=== PATIENT | female | born 1960 | race Caucasian/White ===

== ENCOUNTER 2016-06-03 09:59 | Outpatient (CLI) | payer OTHER ==
--- NOTE | 2016-06-03 12:22 | DIAGNOSTIC IMAGING REPORT ---
PROCEDURE: CT SOFT TISSUE NECK WITH CONT INDICATION: ADENOPATHY, CERVICAL TECHNIQUE: 100 ml of Isovue 300 injected intravenously and axial images were obtained from the skull base through the upper mediastinum with sagittal and coronal reformations. In addition, angled axial oblique images were obtained (avoiding dental hardware). COMPARISON: CT soft tissue neck 10/23/2015. FINDINGS: Multiple stable small nonspecific cervical lymph nodes (largest left jugular 6 mm short axis). Normal nasopharynx, oropharynx and airways. The parotid, submandibular and thyroid glands are unremarkable. Normal visualized lung apices. Mastoids and visualized sinuses are clear. Mild degenerative changes of the spine. IMPRESSION: 1. Negative study. Stable small nonspecific cervical lymph nodes All CT scans at this facility use dose modulation, iterative reconstruction, and/or weight-based dosing when appropriate to reduce radiation dose to as low as reasonably achievable.
[2016-07-30] MEDS ORDERED: OMEPRAZOLE20 M1 PO (13:04)
[2016-07-30] MEDS ORDERED: PREMARIN CREAM TOP (13:06)
[2016-07-30] MEDS ORDERED: OMEGA-3 KRILL O1 CA1 PO (13:07)
[2016-07-30] MEDS ORDERED: VITAMIN C500 M1 PO (13:07)
[2016-07-30] MEDS ORDERED: MULTIPLE VITAMIN PO (13:07)
[2016-07-30] MEDS ORDERED: VITAMIN D-31000 UNIT PO (13:07)
== END 2016-06-03 23:00 ==
LOC: CT SRH 09:59
DX: R59.0 Localized enlarged lymph nodes (principal)

== ENCOUNTER 2016-07-17 09:57 | Outpatient (CLI) | payer OTHER ==
--- NOTE | 2016-07-17 11:50 | DIAGNOSTIC IMAGING REPORT ---
PROCEDURE: XR UPPER GI WITH AIR INDICATION: Chronic reflux and heartburn (refractory to medical therapy). TECHNIQUE: Double contrast study. Fluoroscopy time, 2.2 minutes; 1415.96 mGy. 50 fluoroscopic images (including cinefluoroscopy). COMPARISON: Comparison is made to CT soft tissue neck on 06/03/2016. FINDINGS: Pharyngoesophagus demonstrates moderate transition prominence of the cricopharyngeus muscle, but no evidence of obstruction. Small sliding hiatal hernia with moderate to severe spontaneous gastroesophageal reflux. Mild tertiary contractions of the distal esophagus. Esophagus is otherwise normal. No constricting or polypoid lesions. Stomach and duodenum are normal. IMPRESSION: 1. Pharyngoesophagus demonstrates transient prominence of the cricopharyngeus muscle, but no evidence of obstruction. 2. Small sliding hiatal hernia. 3. Moderate to severe spontaneous gastroesophageal reflux. 4. Normal stomach and duodenum. 5. Findings discussed with the patient.
[2016-07-30] MEDS ORDERED: OMEPRAZOLE20 M1 PO (13:04)
[2016-07-30] MEDS ORDERED: PREMARIN CREAM TOP (13:06)
[2016-07-30] MEDS ORDERED: VITAMIN C500 M1 PO (13:07)
[2016-07-30] MEDS ORDERED: MULTIPLE VITAMIN PO (13:07)
[2016-07-30] MEDS ORDERED: OMEGA-3 KRILL O1 CA1 PO (13:07)
[2016-07-30] MEDS ORDERED: VITAMIN D-31000 UNIT PO (13:07)
== END 2016-07-17 23:00 ==
LOC: XR SRH 09:57
DX: K21.9 Gastro-esophageal reflux disease without esophagitis (principal); K44.9 Diaphragmatic hernia without obstruction or gangrene

== ENCOUNTER 2016-08-01 09:31 | Day surgery (SDC) | payer OTHER ==
[~2016-08-01] VITALS: Ht 180.3 cm; Wt 83.0 kg
[~2016-08-01 09:31] MED LIST: MULTIPLE VITAMIN PO; OMEGA-3 KRILL O1 CA1 PO; OMEPRAZOLE20 M1 PO; PREMARIN CREAM TOP; VITAMIN C500 M1 PO; VITAMIN D-31000 UNIT PO
--- NOTE | 2016-08-01 10:00 | NUR ---
PRE OP INSTRUCTIONS GIVEN AND SAFETY ISSUES DISCUSSED PT CONFIRMED PROCEDURES PT SIGNED CONSENT PT HAS QUESTIONSABLE RESTLESS REFUSED METOCLOPRAMIDE PT RESTING
--- NOTE | 2016-08-01 10:12 | NUR ---
FIRST ATTEMPT IV UNSUCCESSFUL RIGHT WRIST
--- NOTE | 2016-08-01 11:48 | NUR ---
COLONOSCOPY END 1147 EGD START 1151
--- NOTE | 2016-08-01 12:14 | NUR ---
PT SLEEPING UPON ADMIT TO THE PACU. WAKES TO VOICE, DENIES PAIN OR DISCOMFORT.
--- NOTE | 2016-08-01 12:18 | NUR ---
PATIENT AWAKE. SITTING UP ON THE GURNEY, TAKING ICE CHIPS PRN. WELL TOLERATED.
--- NOTE | 2016-08-01 12:32 | Provider's Discharge Care Plan ---
Problem, Goal, Plan Problem List 1. Hiatal hernia
--- NOTE | 2016-08-01 12:32 | Provider's Discharge Care Plan ---
Problem, Goal, Plan Problem List 1. Hiatal hernia
--- NOTE | 2016-08-01 12:57 | NUR ---
PATIENT BACK FROM OR. VITALS STABLE. PASSING GAS. PATIENT DENIES ANY ABDOMINAL DISCOMFORT OR NAUSEA AT THIS TIME. WILL CONTINUE TO MONITOR.
--- NOTE | 2016-08-01 13:04 | OPERATIVE REPORT ---
DATE OF SURGERY: 08/01/2016 SURGEON: King Villarreal MD PREOPERATIVE DIAGNOSES: 1. Colon cancer risk 2. Gastroesophageal reflux disease POSTOPERATIVE DIAGNOSES: 1. Colon cancer risk 2. Gastroesophageal reflux disease PROCEDURE PERFORMED: 1. Colonoscopy 2. Esophagogastroduodenoscopy with biopsies ANESTHESIA: Total IV general. INDICATIONS: The patient is a 56-year-old woman with worsening reflux, now incompletely controlled by proton pump inhibitors. She has a hiatal hernia and prominent reflux. She also is due for screening colonoscopy. SURGICAL TECHNIQUE: The patient was taken to the endoscopy suite, where total IV general was administered and the patient was placed in the left lateral decubitus position. A well-lubricated colonoscope was advanced the length colon under direct vision. There were numerous diverticula seen. The cecum was reached. On withdrawal, there were no additional findings. There were some prominent hemorrhoids. The upper GI endoscope was introduced. The stomach was entered and there was bile laking in the stomach. The duodenum was entered and this was normal. On withdrawal, a retroflexed view demonstrated a large sliding hiatal hernia. A single biopsy was taken from the antrum for Helicobacter testing and additional multiple biopsies were taken from the squamocolumnar junction to rule out Yee's change. The patient left in good condition. There were no intraoperative complications encountered. She will return to the office to discuss her reflux situation and possible remedies
--- NOTE | 2016-08-01 13:17 | NUR ---
PT STATED HAS STARTING TO GET A MIGRAINE C/O SLIGHT NAUSEA. QUEASE TRIED AND COOL CLOTH
--- NOTE | 2016-08-01 14:24 | NUR ---
PT WAS SLEEPING NOW AWAKE. STATED HUNT BETTER. ASKING TO GO HOME REVIEWED DISCHARGE INSTRUCTIONS VERBAL AND WRITTEN PT EXPRESSED UNDERSTANDING
--- NOTE | 2016-08-01 14:27 | NUR ---
PT DISCHARGED AMBULATORY ACCOMPANIED BY SON
[2016-08-01 14:39] VITALS: BP 126/81
== END 2016-08-01 14:28 | disposition home or self-care (01) ==
LOC: OR SRH 09:31 → SCU SRH 09:33 → OR SRH 10:00
PROVIDERS: Surgery
PROC: 0DB38ZX Excision of Lower Esophagus, Via Natural or Artificial Opening Endoscopic, Diagnostic (ICD-10-PCS; principal; 2016-08-01 11:30)
PROC: 0DJD8ZZ Inspection of Lower Intestinal Tract, Via Natural or Artificial Opening Endoscopic (ICD-10-PCS; principal; 2016-08-01 11:30)
PROC: 0DB68ZX Excision of Stomach, Via Natural or Artificial Opening Endoscopic, Diagnostic (ICD-10-PCS; principal; 2016-08-01 11:30)
DX: K21.9 Gastro-esophageal reflux disease without esophagitis (principal); Z12.11 Encounter for screening for malignant neoplasm of colon; K22.70 Barrett's esophagus without dysplasia; K44.9 Diaphragmatic hernia without obstruction or gangrene; K64.9 Unspecified hemorrhoids; K57.30 Diverticulosis of large intestine without perforation or abscess without bleeding
CPT/HCPCS: 29229; 29240; 50004; 60001; 82943; 83526; 90705

== ENCOUNTER 2016-10-17 06:57 | Day surgery (SDC) | payer OTHER ==
[~2016-10-17] VITALS: Ht 180.3 cm; Wt 85.4 kg
[2016-10-17] VITALS (10 sets, daily range): BP systolic 133–162; BP diastolic 87–106
[~2016-10-17 06:57] MED LIST changes: +PROBIOTIC PO
[2016-10-18 01:53] VITALS: BP 125/82
[2016-10-18 06:19] VITALS: BP 158/98
--- NOTE | 2016-10-18 07:36 | Progress Note ---
Subjective General POD 1 post lap Justice Pt. feels much better now that her migraine has resolved. She is tolerating PO fluids and has no heartburn. Physical Exam Vital Signs / I&Os Vital Signs Date Time Temp Pulse Resp B/P Pulse O2 O2 Flow FiO2 Ox Delivery Rate 07/ 0619 99.0 86 16 158/98 96 Room Air 07/07 0153 98.2 76 16 125/82 95 07/06 2242 141/91 07/06 2219 98.1 76 16 156/104 96 Room Air 07/06 1515 98.2 80 18 157/106 97 Room Air 07/06 1414 97.9 73 16 150/89 95 Room Air 07/06 1345 75 16 156/102 95 Room Air 07/06 1315 97.5 82 16 133/87 96 Room Air 07/06 1300 63 16 143/91 93 Room Air 07/06 1245 69 16 147/95 96 Room Air 07/06 1230 97.9 74 16 150/102 94 Room Air 07/06 1215 97.9 66 16 162/103 97 Room Air 07/06 1151 97.9 67 16 158/88 99 Nasal 3.0 Cannula 07/06 1145 97.9 63 12 158/88 99 Nasal 3.0 Cannula 07/06 1135 63 14 165/91 98 Nasal 3.0 Cannula 07/06 1125 66 18 167/93 98 Nasal 2.0 Cannula 07/06 1120 74 18 167/93 99 Nasal 3.0 Cannula 07/06 1115 70 15 161/93 98 Nasal 2.0 Cannula 07/06 1110 66 11 175/97 99 Nasal 3.0 Cannula 07/06 1105 75 15 165/92 98 Nasal 2.0 Cannula 07/06 1100 73 25 169/90 100 Nasal 3.0 Cannula 07/06 1055 69 13 161/92 100 Nasal 3.0 Cannula 07/06 1050 72 14 159/91 100 Nasal 3.0 Cannula 07/06 1045 91 22 142/72 97 Nasal 3.0 Cannula 07/06 1040 82 12 142/72 99 Nasal 3.0 Cannula 07/06 1039 97.9 83 12 142/72 99 Nasal 3.0 Cannula I&O 07/06 0800 07/06 1600 07/07 0000 Intake Total 100 1090 900 Output Total 450 Balance 100 640 900 General Appearance Alert, Oriented X3, Cooperative, No acute distress Abdomen non distended, dressings intact. Assessment and Plan Problem List 1. Status post laparoscopic Justice fundoplication Plan Home today PO meds.
[2016-10-18] MEDS ORDERED: NORCO1 TA1 PO (07:38)
--- NOTE | 2016-10-18 08:04 | Provider's Discharge Care Plan ---
Problem, Goal, Plan Problem List 1. Status post laparoscopic Justice fundoplication
--- NOTE | 2016-10-18 08:04 | Provider's Discharge Care Plan ---
Problem, Goal, Plan Problem List 1. Status post laparoscopic Justice fundoplication
[2016-10-18 09:45] VITALS: BP 144/95
== END 2016-10-18 11:15 | disposition home or self-care (01) ==
LOC: OR SRH 06:57 → SCU SRH 07:00 → OR SRH 09:00 → ACUTE2 SRH 12:17 → OR SRH 10-18 11:15
PROVIDERS: Surgery
PROC: 0DV44ZZ Restriction of Esophagogastric Junction, Percutaneous Endoscopic Approach (ICD-10-PCS; principal; 2016-10-17 09:00)
DX: K44.9 Diaphragmatic hernia without obstruction or gangrene (principal); K22.70 Barrett's esophagus without dysplasia